=== PATIENT | male | born 1995 | race African-American/Black ===

== ENCOUNTER 2021-05-28 01:34 | Emergency (ER) | payer MEDICAID ==
[~2021-05-28] VITALS: Ht 177.8 cm; Wt 76.0 kg
[~2021-05-28 01:34] MED LIST: IBUP-812 PO; LISD20CA PO
[2021-05-28 01:52] VITALS: BP 132/78
[2021-05-28] MEDS ORDERED: LIDOcaine 1% W/epiNEPHrine 1:200,000 10ml vial IJ ONE (03:00)
== END 2021-05-28 04:00 | disposition home or self-care (01) ==
LOC: ER 01:36
DX: S51.811A Laceration without foreign body of right forearm, initial encounter (principal); J45.909 Unspecified asthma, uncomplicated; F12.90 Cannabis use, unspecified, uncomplicated; Z87.81 Personal history of (healed) traumatic fracture; Z72.89 Other problems related to lifestyle; Z91.041 Radiographic dye allergy status; Z79.899 Other long term (current) drug therapy
CPT/HCPCS: 12002; 99282

== ENCOUNTER 2021-07-03 11:14 | Emergency (ER) | payer MEDICAID | END 2021-07-03 11:54 | disposition left against medical advice (07) | LOC: ER 11:15 | DX: K08.89 Other specified disorders of teeth and supporting structures (principal); Z53.21 Procedure and treatment not carried out due to patient leaving prior to being seen by health care provider ==

== ENCOUNTER 2021-07-04 10:31 | Emergency (ER) | payer MEDICAID | END 2021-07-04 20:35 | disposition left against medical advice (07) | LOC: ER 10:32 | DX: K04.6 Periapical abscess with sinus (principal); Z53.21 Procedure and treatment not carried out due to patient leaving prior to being seen by health care provider ==

== ENCOUNTER 2021-08-30 03:41 | Emergency (ER) | payer MEDICAID, OTHER ==
[~2021-08-30] VITALS: Ht 177.8 cm; Wt 77.3 kg
[2021-08-30 03:51] VITALS: BP 134/79
[2021-08-30] MEDS ORDERED: LIDOcaine 1% W/epiNEPHrine 1:200,000 10ml vial IJ ONE (04:10)
[2021-08-30] MEDS ORDERED: LIDOcaine 1% w/epiNEPHrine 1:200,000 30ml vial IJ ONE (04:30)
== END 2021-08-30 05:10 | disposition home or self-care (01) ==
LOC: ER 03:42
DX: S61.210A Laceration without foreign body of right index finger without damage to nail, initial encounter (principal); S61.212A Laceration without foreign body of right middle finger without damage to nail, initial encounter; J45.909 Unspecified asthma, uncomplicated; F12.10 Cannabis abuse, uncomplicated; Z88.8 Allergy status to other drugs, medicaments and biological substances; Z79.899 Other long term (current) drug therapy; W26.9XXA Contact with unspecified sharp object(s), initial encounter; Y93.89 Activity, other specified; Y92.89 Other specified places as the place of occurrence of the external cause; Y99.8 Other external cause status
CPT/HCPCS: 12002; 99284